=== PATIENT | female | born 1980 | race African-American/Black ===

== ENCOUNTER 2021-06-02 19:07 | Emergency (ER) | payer OTHER ==
[~2021-06-02] VITALS: Ht 177.8 cm; Wt 100.0 kg
[2021-06-02] MEDS ORDERED: KETOROLAC 60MG/2ML VIAL IM ONE (20:30)
[2021-06-02 20:40] VITALS: BP 126/81
[2021-06-02] MEDS ORDERED: IBUP-2029 MT (21:16)
[2021-06-02] MEDS ORDERED: T3 PO (21:16)
== END 2021-06-02 21:33 | disposition home or self-care (01) ==
LOC: ER 19:07
DX: S82.892A Other fracture of left lower leg, initial encounter for closed fracture (principal); X58.XXXA Exposure to other specified factors, initial encounter; Y93.89 Activity, other specified; Y92.89 Other specified places as the place of occurrence of the external cause; Y99.8 Other external cause status
CPT/HCPCS: 29515; 73610; 73620; 96372; 99284; J1885; Z7610

== ENCOUNTER 2023-11-19 18:57 | Emergency (ER) | payer MEDICAID, OTHER ==
[~2023-11-19] VITALS: Ht 170.2 cm; Wt 120.0 kg
[~2023-11-19 18:57] MED LIST: IBUP-2029 MT; T3 PO
[2023-11-19 19:08] VITALS: BP 136/81; PULSE 111; RESP 16; TEMP 98.7; O2SAT 99
== END 2023-11-19 20:36 | disposition home or self-care (01) ==
LOC: ER 18:57
DX: L98.9 Disorder of the skin and subcutaneous tissue, unspecified (principal); Z98.890 Other specified postprocedural states
CPT/HCPCS: 99281